=== PATIENT | female | born 1990 | race Two or more races ===

== ENCOUNTER 2020-12-18 11:59 | Emergency (ER) | payer OTHER ==
[~2020-12-18] VITALS: Ht 162.6 cm; Wt 52.3 kg
[2020-12-18 12:16] VITALS: BP 124/76
[2020-12-18 12:49] LABS: COVID AG,FIA SOURCE NASOPHARYNGEAL
[2020-12-18] MEDS ORDERED: ACETAMINOPHEN 325 MG TABLET PO ONE (13:45)
== END 2020-12-18 14:09 | disposition home or self-care (01) ==
LOC: EMS 12:03
DX: U07.1 COVID-19 (principal); R05 Cough
CPT/HCPCS: 87426; 99283